=== PATIENT | female | born 1960 | race Caucasian/White ===

== ENCOUNTER → 2017-10-10 | Outpatient (CLI) | payer OTHER | LOC: LAB SRC 12:01 → LAB SHORT 12:01 | DX: S81.802D Unspecified open wound, left lower leg, subsequent encounter (principal) | CPT/HCPCS: 87070; 87075; 87205 ==

== ENCOUNTER 2017-10-14 12:20 | Day surgery (SDC) | payer OTHER | END 2017-10-14 14:23 | disposition home or self-care (01) | LOC: WOUND | DX: L97.922 Non-pressure chronic ulcer of unspecified part of left lower leg with fat layer exposed (principal); R60.0 Localized edema; I10 Essential (primary) hypertension | CPT/HCPCS: G0463 ==

== ENCOUNTER 2017-11-12 00:45 | Day surgery (SDC) | payer OTHER | END 2017-11-12 10:53 | disposition home or self-care (01) | LOC: ATC 00:45 | DX: S81.802A Unspecified open wound, left lower leg, initial encounter (principal); I10 Essential (primary) hypertension | CPT/HCPCS: 99211 ==

== ENCOUNTER 2017-11-18 00:23 | Day surgery (SDC) | payer OTHER ==
[2017-11-18] MEDS ORDERED: LOSA50 PO (15:59)
[2017-11-18] MEDS ORDERED: ALBU90OI INH (16:00)
[2017-11-18] MEDS ORDERED: MONT10T PO (16:00)
[2017-11-18] MEDS ORDERED: ESTR2 PO (16:00)
[2017-11-18] MEDS ORDERED: METO25 PO (16:01)
[2017-11-18] MEDS ORDERED: Lipitor20 MG PO (16:02)
== END 2017-11-18 11:07 | disposition home or self-care (01) ==
LOC: ATC 00:23
DX: S81.802A Unspecified open wound, left lower leg, initial encounter (principal); I10 Essential (primary) hypertension
CPT/HCPCS: 99212

== ENCOUNTER 2017-11-28 00:12 | Day surgery (SDC) | payer OTHER ==
[~2017-11-28 00:12] MED LIST: ALBU90OI INH; ESTR2 PO; LOSA50 PO; Lipitor20 MG PO; METO25 PO; MONT10T PO
== END 2017-11-28 13:43 | disposition home or self-care (01) ==
LOC: ATC 00:12
DX: S81.802D Unspecified open wound, left lower leg, subsequent encounter (principal); I10 Essential (primary) hypertension
CPT/HCPCS: 99212

== ENCOUNTER 2018-05-21 11:53 | Emergency (ER) | payer OTHER, SELFPAY ==
[~2018-05-21] VITALS: Ht 162.6 cm; Wt 102.1 kg
[~2018-05-21 11:53] MED LIST changes: -ACID REDUCER20 MG PO; -Mobic15 MG PO; -Tizanidine HCl2 MG
[2018-05-21] MEDS ORDERED: Tizanidine HCl2 MG (12:08)
[2018-05-21] MEDS ORDERED: ACID REDUCER20 MG PO (12:08)
[2018-05-21] MEDS ORDERED: Mobic15 MG PO (12:08)
[2018-05-21 12:48] LABS: BASOPHILS ABSOLUTE AUTO 0.03 K/mm3 (0.00-0.23); BASOPHILS PERCENT AUTO 1 % (0-2); EOSINOPHILS ABSOLUTE AUTO 0.15 K/mm3 (0.00-0.68); EOSINOPHILS PERCENT AUTO 3 % (0-6); Hematocrit 40.8 % (33.0-51.0); Hemoglobin 13.8 g/dL (11.5-16.0); IMMATURE GRAN ABSOLUTE AUTO 0.02 K/mm3 (0.00-0.10); IMMATURE GRAN PERCENT AUTO 0 % (0-1); LYMPHOCYTES ABSOLUTE AUTO 1.75 K/mm3 (0.84-5.20); LYMPHOCYTES PERCENT AUTO 29 % (21-46); MONOCYTES ABSOLUTE AUTO 0.45 K/mm3 (0.16-1.47); MONOCYTES PERCENT AUTO 7 % (4-13); Mean Corpuscular HGB 31.2 pg (26.0-34.0); Mean Corpuscular HGB Conc 33.8 g/dL (31.5-36.5); Mean Corpuscular Volume 92 fL (80-100); Mean Platelet Volume 12.2 fL (9.1-12.4); NEUTROPHILS ABSOLUTE AUTO 3.71 K/mm3 (1.96-9.15); NEUTROPHILS PERCENT AUTO 61 % (41-73); Platelet Count 175 K/mm3 (150-400); RDW Coefficient Variation 12.4 % (11.7-14.2); RDW Standard Deviation 41.9 fL (35.1-46.3); Red Blood Cell Count 4.43 M/mm3 (3.80-5.20); White Blood Cell Count 6.11 K/mm3 (4.00-11.30)
[2018-05-21 13:14] LABS: Alanine Aminotransfer (ALT/SGP 26 U/L (12-78); Albumin, Blood 3.7 g/dL (3.4-5.0); Alk Phos 107 U/L (50-136); Anion Gap 7 mmol/L (6-16); Aspartate Aminotrans (AST/SGOT 20 U/L (12-37); Bilirubin, Total 0.3 mg/dL (0.1-1.0); Blood Urea Nitrogen 21 mg/dL (8-24); Bun/Creatinine Ratio 25.9 (12.0-20.0); CO2, Blood 25 mmol/L (21-32); Calcium, Blood 9.5 mg/dL (8.5-10.1); Chloride, Blood 109 mmol/L (98-108); Creatinine, Blood 0.81 mg/dL (0.40-1.00); Globulin, Blood 3.6 g/dL (2.2-4.0); Glomerular Filtration Rate >60 (60-); Glucose, Blood 93 mg/dL (70-99); Potassium, Blood 3.9 mmol/L (3.5-5.5); Sodium, Blood 141 mmol/L (136-145); Total Protein, Blood 7.3 g/dL (6.4-8.2)
[2018-05-21 13:26] LABS: International Normalized Ratio 0.98; Prothrombin Time Results 10.4 Sec (9.7-11.5)
== END 2018-05-21 15:05 | disposition home or self-care (01) ==
LOC: ER 11:53
PROVIDERS: Physician Assistant
DX: R40.4 Transient alteration of awareness (principal); I10 Essential (primary) hypertension; R47.9 Unspecified speech disturbances; E78.00 Pure hypercholesterolemia, unspecified; Z88.0 Allergy status to penicillin; Z79.899 Other long term (current) drug therapy; Z87.891 Personal history of nicotine dependence
CPT/HCPCS: 36415; 70450; 80053; 85025; 85610; 93005; 93010; 99285-25

== ENCOUNTER → 2018-05-21 | Outpatient (CLI) | payer OTHER, SELFPAY ==
[~2018-05-21] MED LIST changes: +ACID REDUCER20 MG PO; +Mobic15 MG PO; +Tizanidine HCl2 MG
[2018-05-22 16:41] LABS: CHOL/HDL RATIO 3.6; Cholesterol 207 mg/dL (50-200); HDL Cholesterol 58 mg/dL (>39); LDL/HDL RATIO 1.8; Low Density Lipoprotein Chol 106 mg/dL (0-110); Triglycerides 217 mg/dL (30-160); Very Low Density Lipoprot Chol 43 mg/dL (6-32)
== END | disposition home or self-care (01) ==
LOC: LAB SHORT 12:36 → LAB SRC 12:36
PROVIDERS: Nurse Practitioner Family
DX: G45.9 Transient cerebral ischemic attack, unspecified (principal); I10 Essential (primary) hypertension
CPT/HCPCS: 80061

== ENCOUNTER 2018-06-17 06:03 | Day surgery (SDC) | payer OTHER ==
[~2018-06-17] VITALS: Ht 162.6 cm; Wt 104.0 kg
[~2018-06-17 06:03] MED LIST changes: +ACID REDUCER20 MG PO; +Mobic15 MG PO; +Tizanidine HCl2 MG
[2018-06-17] MEDS ORDERED: Aspirin EC81 MG PO (06:44)
--- NOTE | 2018-06-17 07:03 | NUR ---
PT A&O X 3. ELO EXPLAINED CONSENTS SIGNED AND ALL QUESTIONS ANSWERED. CALL LIGHT IN REACH.
--- NOTE | 2018-06-17 07:19 | NUR ---
DR BERGER ARRIVED FOR ELO.
--- NOTE | 2018-06-17 07:30 | NUR ---
DR RIVERA ARRIVED; TIME OUT COMPLETED.
--- NOTE | 2018-06-17 07:33 | NUR ---
ELO COMPLETE; PT TOLERATED WELL.
--- NOTE | 2018-06-17 08:45 | NUR ---
DISCHARGE INSTRUCTIONS REVIEWED ALL QUESTIONS ANSWERED. PT DRANK SIPS OF WATER WITH NO ASPIRATION. 22 G IV DISCONTINUED FROM RIGHT HAND WITH INTACT CANNULA. PT ESCORTED OUT VIA WHEELCHAIR ESCORT.
--- NOTE | 2018-06-17 09:32 | NUR ---
ECHOCARDIOGRAM COMPLETE
== END 2018-06-17 22:57 | disposition home or self-care (01) ==
LOC: MHTC 06:03
DX: G45.9 Transient cerebral ischemic attack, unspecified (principal); Q21.1 Atrial septal defect; I10 Essential (primary) hypertension; E78.5 Hyperlipidemia, unspecified; M19.90 Unspecified osteoarthritis, unspecified site; E66.01 Morbid (severe) obesity due to excess calories; Z79.82 Long term (current) use of aspirin; Z79.899 Other long term (current) drug therapy; Z87.891 Personal history of nicotine dependence; Z88.0 Allergy status to penicillin; Z68.39 Body mass index [BMI] 39.0-39.9, adult
CPT/HCPCS: 93312; 93325; J7120

== ENCOUNTER → 2019-05-14 | Outpatient (CLI) | payer OTHER ==
[~2019-05-14] MED LIST changes: +Aspirin EC81 MG PO
[2019-05-16 12:55] LABS: Stool Occult Bld Immuno 1 Negative (NEGATIVE)
== END | disposition home or self-care (01) ==
LOC: LAB SHORT 12:52 → LAB 12:52
PROVIDERS: Nurse Practitioner Family
DX: Z12.11 Encounter for screening for malignant neoplasm of colon (principal)
CPT/HCPCS: G0328

== ENCOUNTER 2022-12-28 08:04 | Day surgery (SDC) | payer OTHER ==
[2022-12-28] VITALS (13 sets, daily range): BP systolic 137–193; BP diastolic 57–75
[~2022-12-28] VITALS: Ht 162.6 cm; Wt 93.4 kg
--- NOTE | 2022-12-28 10:32 | NUR ---
PRE-OP NOTE PT A&OX4, BREATHING RA, CALM, NO ACUTE CONCERNS. PT CHALLENGING TO ACHIEVE IV ACCESS. AFTER PERIPHERAL ATTEMPTS BY YAIMA EVANGELISTA AND CHIQUIS Rivera RN, POWERGLIDE ATTEMPTED USING STERILE TECHNIQUE BY YAIMA REGALADO AND WAS UNSUCCESSFUL. 22G PERIPHERAL IN WRIST STARTED BY YAIMA SIM AND DR THOMASON APPROVED. INTERSCALENE BLOCK PERFORMED BY DR. THOMASON, TIME OUT PRIOR TO PROCEDURE AT 1020 DONE. Ambulatory in Day Surgery Patient confirms NPO status and agrees with scheduled surgery. Pre-Op teaching done. Pt verbalizes understanding. GLASSES BROUGHT TO PACU.
--- NOTE | 2022-12-28 16:47 | NUR ---
DISCHARGE SUMMARY POD0 R TSA, A/OX4, VSS, TOLERATING PO, DENIES PAIN. SHE CAME OUT TO THE FLOOR VIA HER BED FROM PACU WITH INSTRUCTIONS THAT SHE CAN DC WHEN READY, SHE WORKED WITH PT AND OT PRIOR TO DC, IV ACCESS REMOVED X2 PRIOR TO DC, AQUACELL ON R ANTERIOR SHOULDER WAS C/D/I, R ARM PLACED IN ARM SLING PLACED BY OT. DISCUSSED DISCHARGE INSTRUCTIONS WITH HER INCLUDING HOME CARE, MEDICATIONS, AND FOLLOW UP APPOINTMENTS. PROVIDED HER WITH PAIN SCRIPT FROM SURGEON AND EXTRA BANDAGES TO CHANGE DIRECTED. NO XANDER AT THIS TIME, PE ESCORTED OUT VIA WC TO PRIVATE AUTO TO GO HOME.
== END 2022-12-28 13:25 | disposition home or self-care (01) ==
LOC: ORSCMMR 08:04 → ORD 09:45 → ORSCMMR 09:45 → SURS 13:09 → ORSCMMR 13:25
PROVIDERS: Orthopaedic Surgery
PROC: 0RRJ00Z Replacement of Right Shoulder Joint with Reverse Ball and Socket Synthetic Substitute, Open Approach (ICD-10-PCS; principal; 2022-12-28 10:00)
DX: M19.011 Primary osteoarthritis, right shoulder (principal); M75.101 Unspecified rotator cuff tear or rupture of right shoulder, not specified as traumatic; I10 Essential (primary) hypertension; E66.9 Obesity, unspecified; Z68.35 Body mass index [BMI] 35.0-35.9, adult; E78.5 Hyperlipidemia, unspecified; Z79.899 Other long term (current) drug therapy; Z79.82 Long term (current) use of aspirin
CPT/HCPCS: 73030; 97162; 97166; 97530; 97535; A9270; C1713; C1776; J0171; J0690; J0735; J1885; J2250; J2405; J2704; J2795; J3010; J7120

== ENCOUNTER 2023-09-20 11:04 | Day surgery (SDC) | payer OTHER ==
[~2023-09-20] VITALS: Ht 162.6 cm; Wt 93.8 kg
[~2023-09-20 11:04] MED LIST changes: +Lactated Ringer's 1,000 ML IV ONE; +Ropivacaine 0.5% HCl/Pf 5 MG/ML 20ML VIAL ONE
[2023-09-20] MEDS ORDERED: CYCL10 PO (11:32)
[2023-09-20] MEDS ORDERED: Lactated Ringer's 1,000 ML IV ONE (11:47)
[2023-09-20] MEDS ORDERED: CeFAZolin Sodium 2,000 MG VIAL ONE (12:18)
[2023-09-20] MEDS ORDERED: NS 50 ML IV ONE (12:19)
[2023-09-20] MEDS ORDERED: propofoL 20 ML IV ONE (12:21)
[2023-09-20] MEDS ORDERED: Dexamethasone Sod Phos 10 MG/ML 1ML VIAL ONE (12:31)
[2023-09-20] MEDS ORDERED: FentaNYL Citrate 50 MCG/ML 2 ML Injection ONE (12:41)
[2023-09-20] MEDS ORDERED: EPINEPhrine HCl 1 MG/ML 1ML Amp XX ONE (12:47)
--- NOTE | 2023-09-20 12:48 | NUR ---
09/20/23 1248 Rubi Leavitt 0.1ML OF EPI 1MG/ML ADDED TO 20ML OF ROPIVICAINE 0.5% TO CREATE A LOCAL SOLUTION OF ROPIVICAINE 0.5% W/EPI 1:200,000.
[2023-09-20] MEDS ORDERED: Ondansetron HCl 2 MG / ML 2ML Vial ONE (12:58)
[2023-09-20 13:54] VITALS: BP 145/78
== END 2023-09-20 13:53 | disposition home or self-care (01) ==
LOC: ORSCSDS 11:04
PROVIDERS: Orthopaedic Surgery
PROC: 01N40ZZ Release Ulnar Nerve, Open Approach (ICD-10-PCS; principal; 2023-09-20 12:45)
DX: G56.22 Lesion of ulnar nerve, left upper limb (principal); I10 Essential (primary) hypertension; E78.5 Hyperlipidemia, unspecified; Z79.82 Long term (current) use of aspirin; Z79.899 Other long term (current) drug therapy; G47.33 Obstructive sleep apnea (adult) (pediatric); E66.01 Morbid (severe) obesity due to excess calories; Z68.35 Body mass index [BMI] 35.0-35.9, adult; Z87.891 Personal history of nicotine dependence
CPT/HCPCS: J0171; J0690; J1100; J2405; J2704; J2795; J3010; J7120

== ENCOUNTER → 2023-10-22 | Outpatient (CLI) | payer OTHER ==
[~2023-10-22] MED LIST changes: +CYCL10 PO; -Lactated Ringer's 1,000 ML IV ONE; -Ropivacaine 0.5% HCl/Pf 5 MG/ML 20ML VIAL ONE
[2023-10-22 12:04] LABS: Source, Urine Clean Catch
[2023-10-22 12:18] LABS: Bacteria Not Seen /hpf; Red Blood Cells, Urine 0-2 /hpf (0-2); Squamous Epithelial Cells Mod /hpf (Few); White Blood Cells, Urine 50-100 /hpf (0-5)
== END ==
LOC: LAB SHORT 12:01 → LAB 12:01
PROVIDERS: Internal Medicine
DX: N39.0 Urinary tract infection, site not specified (principal)
CPT/HCPCS: 81015; 87086

== ENCOUNTER → 2024-03-10 | Outpatient (CLI) | payer OTHER | LOC: LAB 18:14 → LAB SHORT 18:14 | DX: R10.9 Unspecified abdominal pain (principal) | CPT/HCPCS: 87086 ==

== ENCOUNTER 2024-07-15 10:09 | Day surgery (SDC) | payer OTHER ==
[~2024-07-15] VITALS: Ht 162.6 cm; Wt 85.6 kg
[~2024-07-15 10:09] MED LIST changes: +Lactated Ringer's 1,000 ML IV ONE
[2024-07-15] MEDS ORDERED: HYDCHL25 (11:00)
[2024-07-15] MEDS ORDERED: LACT (11:00)
[2024-07-15] MEDS ORDERED: MELO7.5 (11:01)
[2024-07-15] MEDS ORDERED: XYZAL5 MG (11:01)
[2024-07-15] MEDS ORDERED: Midazolam HCl 1MG / ML 2ML Vial ONE (11:48)
[2024-07-15] MEDS ORDERED: propofoL 50 ML IV ONE ×2 (11:52→12:28)
[2024-07-15] MEDS ORDERED: Lidocaine HCl 4% 5 ML SDA ONE (11:53)
[2024-07-15] MEDS ORDERED: Lactated Ringer's 1,000 ML IV ONE (11:55)
[2024-07-15] MEDS ORDERED: Glycopyrrolate 0.2 MG/ML 1MLVIAL ONE (12:21)
[2024-07-15] MEDS ORDERED: Ondansetron 4 MG SoluTab ONE (13:18)
[2024-07-15 13:25] VITALS: BP 170/89
--- NOTE | 2024-07-15 13:37 | NUR ---
07/15/24 1092 SAM GRAJEDA PT STATES SLEEP AND A PILLOW WILL BE ALL SHE NEEDS.
== END 2024-07-15 13:36 | disposition home or self-care (01) ==
LOC: ORSCSDS 10:09
PROVIDERS: Specialist
PROC: 0DB58ZX Excision of Esophagus, Via Natural or Artificial Opening Endoscopic, Diagnostic (ICD-10-PCS; principal; 2024-07-15 12:00)
PROC: 0DB98ZX Excision of Duodenum, Via Natural or Artificial Opening Endoscopic, Diagnostic (ICD-10-PCS; principal; 2024-07-15 12:00)
PROC: 0DJD8ZZ Inspection of Lower Intestinal Tract, Via Natural or Artificial Opening Endoscopic (ICD-10-PCS; principal; 2024-07-15 12:00)
PROC: 0DB78ZX Excision of Stomach, Pylorus, Via Natural or Artificial Opening Endoscopic, Diagnostic (ICD-10-PCS; principal; 2024-07-15 12:00)
DX: R19.4 Change in bowel habit (principal); R10.13 Epigastric pain; Z80.0 Family history of malignant neoplasm of digestive organs; R13.10 Dysphagia, unspecified; R11.0 Nausea; K29.50 Unspecified chronic gastritis without bleeding; B96.81 Helicobacter pylori [H. pylori] as the cause of diseases classified elsewhere; R63.4 Abnormal weight loss; K64.8 Other hemorrhoids; I10 Essential (primary) hypertension; E78.5 Hyperlipidemia, unspecified; E66.9 Obesity, unspecified; Z68.32 Body mass index [BMI] 32.0-32.9, adult; Z79.899 Other long term (current) drug therapy
CPT/HCPCS: 88305; 88342; A9270; J2003; J2250; J2704; J7120